=== PATIENT | female | born 1940 | race Caucasian/White ===

== ENCOUNTER 2021-06-12 20:55 | Inpatient (IN) | payer MEDICARE, BC ==
[~2021-06-12] VITALS: Ht 162.6 cm; Wt 58.1 kg
[2021-06-12] MEDS ORDERED: TRAZ-257 PO (21:29)
[2021-06-12] MEDS ORDERED: LOSA1TAB42 PO (21:29)
[2021-06-12] MEDS ORDERED: SIMV-46 PO (21:29)
[2021-06-12] MEDS ORDERED: NIFE-60 PO (21:29)
[2021-06-12] MEDS ORDERED: METO-357 PO (21:29)
[2021-06-12] MEDS ORDERED: IBUPROFEN 400 MG TABLET PO ONE (21:45)
[2021-06-12] MEDS ORDERED: IBUPROFEN 400 MG TABLET ONE (21:53)
--- NOTE | 2021-06-12 21:54 | NUR ---
Per pt is medically clear for admission to MHU. SBAR report given to Marely on MHU floor via telephone.
--- NOTE | 2021-06-12 22:55 | NUR ---
Pt trans to MHU, NAD noted.
[2021-06-12] MEDS ORDERED: BLOOD SUGAR DIAGNOSTIC 1 EACH STRIP VI ONE (23:00)
[2021-06-12] MEDS ORDERED: MAG HYDROX/AL HYDROX/SIMETH 30 ML LIQUID UDC PO PRN (23:00)
[2021-06-12 23:03] VITALS: BP 148/68
[2021-06-12] MEDS: LORAZEPAM 0.5 MG TABLET PO PRN (23:18)
--- NOTE | 2021-06-12 23:30 | NUR ---
RECEIVED PATIENT VIA W/C FROM ER. PATIENT IS A/O X3. VERY ANXIOUS UPON ARRIVAL TO FLOOR. DENIES ANY PAIN OR DISCOMFORT. NO RESP. DISTRESS NOTED. PATIENT DENIES ANY THOUGHTS OR FEELINGS OF ANY SUICIDE IDEATIONS AT THIS TIME, BUT DID STATE SHE HAS BEEN VERY DEPRESSED FOR THE PAST 3 YEARS SINCE HER KNEE REPLACEMENT HAPPENED AND SHE LOST SOME OF HER INDEPENDENCE. RECENTLY LOST HER CAT OF OVER [address] PUENTES AND MELANIE NOTIFIED OF ADMISSION. PATIENT VERY ANXIOUS AND C/O ANXIETY, STATING SHE IS VERY TIRED AND WANTS TO GO TO BED. GIVEN ATIVAN 0.5MG PO PRN FOR ANXIETY. PROVIDED SAFE AND THERAPEUTIC ENVIRONMENT. WILL CONTINUE TO MONITOR AND ASSESS.
[2021-06-13 07:30] VITALS: BP 138/57
[2021-06-13] MEDS: LORAZEPAM 0.5 MG TABLET PO PRN ×2 (08:54→15:54)
--- NOTE | 2021-06-13 09:56 | NUR ---
Firearms Report: Cook [employer]illa completed and submitted a DOJ firearms report for 5150 grave disability certifications. A copy of report has been placed in patient chart.
[2021-06-13] MEDS ORDERED: Medication Not On Formulary EA (Losartan/Hydrochlorothiazide (Losartan-Hctz 100-12.5 Mg PO SCH (12:15)
[2021-06-13] MEDS: SIMVASTATIN 20 MG TABLET PO SCH ×2 (12:26→20:06)
[2021-06-13] MEDS: METOPROLOL SUCCINATE XL 50 MG TAB.SR.24H PO SCH (12:26)
--- NOTE | 2021-06-13 12:45 | NUR ---
SW Substance Abuse Intervention: Patient was provided with a brief substance abuse intervention for prescription medication overdose and referred to [facility] ([phone]) [facility] ([phone]) [place] [facility] (659-514-9470) [facility] (390-545-5668) [facility] ([phone]) [facility] National Helpline (828-090-4466).
[2021-06-13] MEDS: FLUOXETINE HCL 10 MG CAPSULE PO SCH (13:49)
[2021-06-13 15:11] VITALS: BP 106/61
--- NOTE | 2021-06-13 15:11 | NUR ---
SW Family Contact: SW spoke with patient's daughter Marely Velázquez ([phone]) and discussed patient's treatment and discharge plan. Marely expressed that she would like a SNF placement for the patient upon discharge. SW discussed SNF options such as [facility] and [facility]. Marely stated they will do some research for facilities. SW provided education on depressions and suicide and the emphasis on a psych focused facility. Marely is agreeable.
--- NOTE | 2021-06-13 15:11 | NUR ---
DYLAN Initial Discharge Plan: Patient currently resides at home [address] [place] [address] and would like to return. Patient has a daughter Marely Delgadillo ([phone]) who is involved in her treatment and discharge plan. DYLAN will continue to work with patient, family, and MD to ensure a safe and proper discharge plan.
--- NOTE | 2021-06-13 15:42 | NUR ---
Treatment Plan: Patient refused to sign the treatment plan due to depressed mood.
[2021-06-13] MEDS: MIRTAZAPINE 15 MG TABLET PO SCH (20:06)
[2021-06-13 20:33] VITALS: BP 114/53
[2021-06-13] MEDS: TEMAZEPAM 7.5 MG CAPSULE PO PRN (21:57)
[2021-06-14 06:53] LABS: HEMATOCRIT 40.2 % (31.2-41.9); MEAN CORPUSCULAR HEMOGLOBIN 31.4 uug (24.7-32.8); MEAN CORPUSCULAR VOLUME 93.8 fL (75.5-95.3); PLATELET COUNT (AUTO) 293 K/uL (179-408)
[2021-06-14 06:55] LABS: MAGNESIUM 1.8 mg/dL (1.8-2.4); PHOSPHOROUS 2.9 mg/dL (2.5-4.9)
[2021-06-14 07:30] VITALS: BP 148/70
[2021-06-14] MEDS: LOSARTAN POTASSIUM 50 MG TABLET PO SCH (08:57)
[2021-06-14] MEDS: HYDROCHLOROTHIAZIDE 12.5 MG CAPSULE PO SCH (08:58)
[2021-06-14] MEDS: METOPROLOL SUCCINATE XL 50 MG TAB.SR.24H PO SCH (08:58)
[2021-06-14] MEDS ORDERED: NIFEdipine XL 30 MG TABSR PO SCH (09:00)
[2021-06-14] MEDS: LORAZEPAM 0.5 MG TABLET PO PRN ×2 (09:08→18:04)
--- NOTE | 2021-06-14 09:34 | NUR ---
SNF Referral: This SW faxed SNF placement to [facility]. SW faxed patient's clinicals.
--- NOTE | 2021-06-14 11:12 | NUR ---
SNF Contact: This SW received a call from Marely jacob from [facility] who stated that pt is accepted.
[2021-06-14] MEDS: ACETAMINOPHEN 325 MG TABLET PO PRN (13:08)
[2021-06-14] MEDS: FLUOXETINE HCL 10 MG CAPSULE PO SCH (13:09)
--- NOTE | 2021-06-14 14:18 | NUR ---
SW Family Contact: This SW received a call from patient's son in law Kt ([phone]) who stated that family has found a inpatient rehab in [place] called [facility] and requested for this SW to contact Ary ([phone]) the admin to see if they will accept pt.
--- NOTE | 2021-06-14 14:19 | NUR ---
SW SNF Referral: Per families request, this SW reached out to Ary from [facility] ([phone]) and spoke with rAy for placement option. This SW faxed patient's clinicals (F: [phone]).
--- NOTE | 2021-06-14 14:29 | NUR ---
SW Family Contact: This SW spoke with patient's daughter Marely ([phone]) and stated that patient is accepted at [facility] and she stated she does not want pt to go there. She stated that family is working on finding other facilities for her in [place]. She expressed she would want this SW to send referral to [facility]. SW informed that this senior medical writer has already sent in pt's clinicals for review to Ary jacob ([phone]).
[2021-06-14 14:38] LABS: EOSINOPHILS % (MANUAL) 3 % (0-8); LYMPHOCYTES % (MANUAL) 27 % (20-40); MONOCYTES % (MANUAL) 20 % (2-10); NEUTROPHILS % (MANUAL) 50 % (42-75)
--- NOTE | 2021-06-14 15:07 | NUR ---
SW SNF Contact: This SW received a call from Ary from [facility] ([phone]) who stated that they are not a behavioral facility and that [facility] ([phone]) is behavioral.
--- NOTE | 2021-06-14 15:08 | NUR ---
SNF Contact: This SW spoke with Ana from [facility] ([phone]) who stated that they are currently not taking in new patients and that they do not transfer pts from other units. She stated that pt has to come to the ER once discharged for them to admit her to the behavioral unit.
--- NOTE | 2021-06-14 15:12 | NUR ---
SW Family Contact: This SW spoke with Marely and Kt ([phone]) and shared information that the [facility] that was [facility] did not accept pt because they are not a behavioral unit. This SW shared information of [facility], Ana jacob ([phone]) who stated that they are currently not taking in new patients and that they do not transfer pts from other units. She stated that pt has to come to the ER once discharged for them to admit her to the behavioral unit. This SW shared this information. Kt and Marely stated that they want [facility] as a back up until they are able to find a placement for pt in [place].
[2021-06-14 16:32] VITALS: BP 127/51
[2021-06-14 20:06] VITALS: BP 116/50
[2021-06-14] MEDS: SIMVASTATIN 20 MG TABLET PO SCH (20:55)
[2021-06-14] MEDS: MIRTAZAPINE 15 MG TABLET PO SCH (20:55)
[2021-06-14] MEDS: TEMAZEPAM 7.5 MG CAPSULE PO PRN (22:19)
[2021-06-15 07:30] VITALS: BP 133/70
[2021-06-15] MEDS ORDERED: NIFEdipine XL 30 MG TABSR PO SCH (09:00)
[2021-06-15] MEDS: HYDROCHLOROTHIAZIDE 12.5 MG CAPSULE PO SCH (09:08)
[2021-06-15] MEDS: LOSARTAN POTASSIUM 50 MG TABLET PO SCH (09:09)
[2021-06-15] MEDS: NIFEdipine XL 60 MG TABSR PO SCH (09:09)
[2021-06-15] MEDS: METOPROLOL SUCCINATE XL 50 MG TAB.SR.24H PO SCH (09:10)
[2021-06-15] MEDS: LORAZEPAM 0.5 MG TABLET PO PRN ×3 (09:20→21:23)
[2021-06-15] MEDS: FLUOXETINE HCL 20 MG CAPSULE PO SCH (12:50)
[2021-06-15] MEDS ORDERED: FLUOXETINE HCL 10 MG CAPSULE PO SCH (13:00)
[2021-06-15] MEDS: MAGNESIUM HYDROXIDE 30 ML LIQUID UDC PO PRN (14:49)
--- NOTE | 2021-06-15 15:52 | NUR ---
SW Family Contact: This SW spoke with patient's daughter Marely and Kt ([phone]) who stated they have decided to take the patient home upon discharge. They stated they are coordinating resources her the patient such as psychiatry, home care, psychology and will provide the informations and appointments once set. They stated they will pick her up at discharge preferably on a Saturday.
[2021-06-15 16:00] VITALS: BP 114/58
[2021-06-15 20:00] VITALS: BP 111/51
[2021-06-15] MEDS: MIRTAZAPINE 15 MG TABLET PO SCH (20:19)
[2021-06-15] MEDS: SIMVASTATIN 20 MG TABLET PO SCH (20:19)
[2021-06-16] MEDS: LORAZEPAM 0.5 MG TABLET PO PRN ×2 (05:17→11:07)
--- NOTE | 2021-06-16 06:51 | NUR ---
GPS: Pt.slept for 7.30 last night. Woke up earlier and asked for an Ativan for anxiety which was given to her. Re-assured prn. Denies SI. Will continue to monitor.
[2021-06-16 07:30] VITALS: BP 120/49
--- NOTE | 2021-06-16 08:30 | NUR ---
Gps/Data Analysis Assistant- Ambulates aaround with front wheel walker, urine specimen obtained(Voided), taken to lab. Less anxious.
[2021-06-16] MEDS: HYDROCHLOROTHIAZIDE 12.5 MG CAPSULE PO SCH (09:03)
[2021-06-16] MEDS: NIFEdipine XL 60 MG TABSR PO SCH (09:03)
[2021-06-16] MEDS: METOPROLOL SUCCINATE XL 50 MG TAB.SR.24H PO SCH (09:04)
[2021-06-16] MEDS: ENSURE ENLIVE (VAN) 240 ML LIQUID PO SCH (09:05)
[2021-06-16] MEDS: LOSARTAN POTASSIUM 50 MG TABLET PO SCH (09:05)
--- NOTE | 2021-06-16 09:45 | NUR ---
Court Hearing: Patient's court hearing for 5250 is today and it was upheld for GD.
[2021-06-16 10:39] LABS: *BILIRUBIN,URIN NEGATIVE (NEGATIVE); *CLARITY,URINE CLOUDY (CLEAR); *COLOR,URINE YELLOW (YELLOW); *KETONES,URINE NEGATIVE (NEGATIVE); *UROBILINOGEN,URINE 0.2 E.U./dl (NORMAL); LEUKOCYTE ESTERASE ,URINE 2+ (NEGATIVE); NITRITE, URINE POSITIVE (NEGATIVE); UGLUCOSE NEGATIVE (NEGATIVE)
[2021-06-16 10:41] LABS: *BLOOD, URINE TRACE (NEGATIVE)
[2021-06-16] MEDS: FLUOXETINE HCL 20 MG CAPSULE PO SCH (12:47)
[2021-06-16 14:31] LABS: WBC,URINE TNTC /HPF (0-3)
[2021-06-16 14:32] LABS: BACTERIA,URINE MODERATE /HPF (NONE SEEN); SQUAMOUS EPITHELIAL CELL,UR FEW /HPF (NONE SEEN); URINE AMORPHOUS PHOSPHATES FEW /HPF
[2021-06-16 16:50] VITALS: BP 121/47
[2021-06-16] MEDS: SIMVASTATIN 20 MG TABLET PO SCH (20:04)
[2021-06-16] MEDS: MIRTAZAPINE 15 MG TABLET PO SCH (20:04)
[2021-06-16 20:21] VITALS: BP 109/50
[2021-06-16] MEDS: TEMAZEPAM 7.5 MG CAPSULE PO PRN (23:05)
[2021-06-17] MEDS: ACETAMINOPHEN 325 MG TABLET PO PRN ×3 (02:00→21:16)
[2021-06-17] MEDS: LORAZEPAM 0.5 MG TABLET PO PRN ×5 (02:00→23:16)
--- NOTE | 2021-06-17 06:28 | NUR ---
GPS: Pt.slept for 5.30 last night. Anxious at times but listens to re-direction from staff. Denies SI. Fall precautions observed.
[2021-06-17 07:30] VITALS: BP 124/50
[2021-06-17] MEDS: LOSARTAN POTASSIUM 50 MG TABLET PO SCH (08:16)
[2021-06-17] MEDS: NIFEdipine XL 60 MG TABSR PO SCH (08:17)
[2021-06-17] MEDS: METOPROLOL SUCCINATE XL 50 MG TAB.SR.24H PO SCH (08:17)
[2021-06-17] MEDS: HYDROCHLOROTHIAZIDE 12.5 MG CAPSULE PO SCH (08:18)
[2021-06-17] MEDS: ENSURE ENLIVE (VAN) 240 ML LIQUID PO SCH (08:19)
--- NOTE | 2021-06-17 09:00 | NUR ---
Patient is alert and cooperative upon assessment. In activity room watching TV assisted her back to bed with FWW. Denies of any pain. All due meds given per MD orders. All needs met promptly.
[2021-06-17] MEDS: NITROFURANTOIN/NITROFURAN MAC 100 MG CAPSULE PO SCH ×2 (10:05→21:06)
[2021-06-17] MEDS: FLUOXETINE HCL 20 MG CAPSULE PO SCH (12:45)
[2021-06-17 15:20] VITALS: BP 96/46
[2021-06-17 20:15] VITALS: BP 112/51
[2021-06-17] MEDS: SIMVASTATIN 20 MG TABLET PO SCH (21:06)
[2021-06-17] MEDS: MIRTAZAPINE 15 MG TABLET PO SCH (21:06)
[2021-06-17] MEDS: TEMAZEPAM 7.5 MG CAPSULE PO PRN (21:16)
[2021-06-18] MEDS: NITROFURANTOIN/NITROFURAN MAC 100 MG CAPSULE PO SCH ×2 (08:20→20:45)
[2021-06-18] MEDS: NIFEdipine XL 60 MG TABSR PO SCH (08:20)
[2021-06-18] MEDS: HYDROCHLOROTHIAZIDE 12.5 MG CAPSULE PO SCH (08:21)
[2021-06-18] MEDS: METOPROLOL SUCCINATE XL 50 MG TAB.SR.24H PO SCH (08:21)
[2021-06-18] MEDS: LOSARTAN POTASSIUM 50 MG TABLET PO SCH (08:21)
[2021-06-18] MEDS: ENSURE ENLIVE (VAN) 240 ML LIQUID PO SCH (08:22)
[2021-06-18] MEDS: LORAZEPAM 0.5 MG TABLET PO PRN ×3 (08:47→20:24)
[2021-06-18 09:12] VITALS: BP 136/49
[2021-06-18] MEDS: ACETAMINOPHEN 325 MG TABLET PO PRN ×2 (10:42→15:24)
[2021-06-18] MEDS: FLUOXETINE HCL 20 MG CAPSULE PO SCH (12:34)
[2021-06-18 16:37] VITALS: BP 119/62
[2021-06-18 20:00] VITALS: BP 113/56
[2021-06-18] MEDS: SIMVASTATIN 20 MG TABLET PO SCH (20:46)
[2021-06-18] MEDS: MIRTAZAPINE 15 MG TABLET PO SCH (20:46)
[2021-06-18] MEDS: TEMAZEPAM 7.5 MG CAPSULE PO PRN (21:05)
[2021-06-19] MEDS: LORAZEPAM 0.5 MG TABLET PO PRN ×2 (01:30→08:45)
[2021-06-19] MEDS: ACETAMINOPHEN 325 MG TABLET PO PRN (04:23)
[2021-06-19 07:48] VITALS: BP 125/48
[2021-06-19] MEDS: NITROFURANTOIN/NITROFURAN MAC 100 MG CAPSULE PO SCH ×2 (08:23→20:29)
[2021-06-19] MEDS: METOPROLOL SUCCINATE XL 50 MG TAB.SR.24H PO SCH (08:24)
[2021-06-19] MEDS: LOSARTAN POTASSIUM 50 MG TABLET PO SCH (08:24)
[2021-06-19] MEDS: NIFEdipine XL 60 MG TABSR PO SCH (08:24)
[2021-06-19] MEDS: ENSURE ENLIVE (VAN) 240 ML LIQUID PO SCH (08:25)
--- NOTE | 2021-06-19 09:10 | NUR ---
SW Family Contact: This SW spoke with patient's son in law Kt ([phone]) who stated they are still on plan with taking the patient home this week with doctor follow up appointments.
[2021-06-19] MEDS: FLUOXETINE HCL 20 MG CAPSULE PO SCH (12:19)
[2021-06-19 12:33] LABS: HEMATOCRIT 39.1 % (31.2-41.9); MEAN CORPUSCULAR HEMOGLOBIN 31.9 uug (24.7-32.8); MEAN CORPUSCULAR VOLUME 94.2 fL (75.5-95.3); PLATELET COUNT (AUTO) 272 K/uL (179-408)
[2021-06-19 12:44] LABS: CREATININE 1.2 mg/dL (0.6-1.3); POTASSIUM 4.4 mmol/L (3.5-5.1)
[2021-06-19 12:55] LABS: BILIRUBIN,TOTAL 0.4 mg/dL (0.2-1.0); TOTAL PROTEIN, SERUM 6.8 g/dL (6.4-8.2)
[2021-06-19 16:49] VITALS: BP 104/42
[2021-06-19 20:17] VITALS: BP 113/48
[2021-06-19] MEDS: SIMVASTATIN 20 MG TABLET PO SCH (20:29)
[2021-06-19] MEDS: MIRTAZAPINE 15 MG TABLET PO SCH (20:29)
[2021-06-19] MEDS: TEMAZEPAM 7.5 MG CAPSULE PO PRN (22:36)
[2021-06-20 06:48] LABS: HEMATOCRIT 40.8 % (31.2-41.9); MEAN CORPUSCULAR HEMOGLOBIN 31.8 uug (24.7-32.8); MEAN CORPUSCULAR VOLUME 93.7 fL (75.5-95.3); PLATELET COUNT (AUTO) 310 K/uL (179-408)
[2021-06-20 07:01] LABS: CREATININE 1.1 mg/dL (0.6-1.3); POTASSIUM 4.3 mmol/L (3.5-5.1)
[2021-06-20 08:00] VITALS: BP 134/54
[2021-06-20] MEDS: NIFEdipine XL 60 MG TABSR PO SCH (08:34)
[2021-06-20] MEDS: NITROFURANTOIN/NITROFURAN MAC 100 MG CAPSULE PO SCH ×2 (08:34→21:06)
[2021-06-20] MEDS: LOSARTAN POTASSIUM 50 MG TABLET PO SCH (08:35)
[2021-06-20] MEDS: METOPROLOL SUCCINATE XL 50 MG TAB.SR.24H PO SCH (08:35)
[2021-06-20] MEDS: ENSURE ENLIVE (VAN) 240 ML LIQUID PO SCH (08:55)
[2021-06-20] MEDS: FLUOXETINE HCL 20 MG CAPSULE PO SCH (12:48)
--- NOTE | 2021-06-20 13:14 | NUR ---
GPS: pt alert and verbally responsive. pt cooperative with care and compliant with medication. denies any pain or distress at this time. went to dining room for breakfast and lunch and uses front wheel walker during ambulation.
--- NOTE | 2021-06-20 13:30 | NUR ---
SW Family Contact: This SW spoke with patient's son in law Kt ([phone]) and discussed discharge plan, he stated that he will olive picker pt Saturday 11-12:30PM. SW discussed pt's current status.
[2021-06-20 16:00] VITALS: BP 139/55
[2021-06-20] MEDS: ACETAMINOPHEN 325 MG TABLET PO PRN (16:07)
[2021-06-20 20:56] VITALS: BP 125/50
[2021-06-20] MEDS: MIRTAZAPINE 15 MG TABLET PO SCH (21:06)
[2021-06-20] MEDS: SIMVASTATIN 20 MG TABLET PO SCH (21:06)
[2021-06-20] MEDS: TEMAZEPAM 7.5 MG CAPSULE PO PRN (23:17)
[2021-06-21 07:30] VITALS: BP 143/53
[2021-06-21] MEDS: NITROFURANTOIN/NITROFURAN MAC 100 MG CAPSULE PO SCH ×2 (09:17→20:26)
[2021-06-21] MEDS: METOPROLOL SUCCINATE XL 50 MG TAB.SR.24H PO SCH (09:18)
[2021-06-21] MEDS: LOSARTAN POTASSIUM 50 MG TABLET PO SCH (09:18)
[2021-06-21] MEDS: ENSURE ENLIVE (VAN) 240 ML LIQUID PO SCH (09:18)
[2021-06-21] MEDS: NIFEdipine XL 60 MG TABSR PO SCH (09:20)
--- NOTE | 2021-06-21 10:00 | NUR ---
GPS: Patient is alert and cooperative upon assessment. In activity room watching TV. Ambulate with FWW. Denies of any pain. All due meds given . All needs met promptly.continue plan of care.
[2021-06-21] MEDS: FLUOXETINE HCL 20 MG CAPSULE PO SCH (12:33)
--- NOTE | 2021-06-21 14:41 | NUR ---
DYLAN Family Contact: This SW spoke with patient's son in law Kt ([phone]) who requested for patient o be referred for Home Health Services at [facility] (P: [phone] F: [phone]). DYLAN spoke with Ria at the Agency and faxed referral packet.
[2021-06-21 16:00] VITALS: BP 123/59
[2021-06-21] MEDS: ACETAMINOPHEN 325 MG TABLET PO PRN (17:30)
--- NOTE | 2021-06-21 17:31 | NUR ---
patient c/o back pain . tylenol 650 mg po given.
[2021-06-21 19:45] VITALS: BP 121/59
[2021-06-21] MEDS: SIMVASTATIN 20 MG TABLET PO SCH (20:26)
[2021-06-21] MEDS: MIRTAZAPINE 15 MG TABLET PO SCH (20:26)
[2021-06-21] MEDS: TEMAZEPAM 7.5 MG CAPSULE PO PRN (22:36)
[2021-06-22 07:30] VITALS: BP 117/53
[2021-06-22] MEDS: ENSURE ENLIVE (VAN) 240 ML LIQUID PO SCH (09:00)
[2021-06-22] MEDS: LOSARTAN POTASSIUM 50 MG TABLET PO SCH (09:40)
[2021-06-22] MEDS: NIFEdipine XL 60 MG TABSR PO SCH (09:40)
[2021-06-22] MEDS: METOPROLOL SUCCINATE XL 50 MG TAB.SR.24H PO SCH (09:41)
[2021-06-22] MEDS: ACETAMINOPHEN 325 MG TABLET PO PRN ×2 (10:24→18:24)
[2021-06-22] MEDS: LORAZEPAM 0.5 MG TABLET PO PRN (10:25)
[2021-06-22] MEDS: FLUOXETINE HCL 20 MG CAPSULE PO SCH (13:28)
--- NOTE | 2021-06-22 14:55 | NUR ---
Gps/Graduation Coach- Attends and participates in her group therapy, making her needs known to staff . Verbalized feelings of being anxious, claimed she 's trying her best to keep herself focus per pt. Denies any S.I. , cooperative with staff.
[2021-06-22 16:13] VITALS: BP 111/49
[2021-06-22] MEDS: ASPIRIN EC 81 MG TABLET.DR PO SCH (17:41)
[2021-06-22 20:03] VITALS: BP 112/52
[2021-06-22] MEDS: MIRTAZAPINE 15 MG TABLET PO SCH (20:09)
[2021-06-22] MEDS: NITROFURANTOIN/NITROFURAN MAC 100 MG CAPSULE PO SCH (20:10)
[2021-06-22] MEDS: SIMVASTATIN 20 MG TABLET PO SCH (20:10)
[2021-06-22] MEDS: TEMAZEPAM 7.5 MG CAPSULE PO PRN (22:38)
[2021-06-23] MEDS: NIFEdipine XL 60 MG TABSR PO SCH (08:32)
[2021-06-23] MEDS: GLIMEPIRIDE 2 MG TABLET PO SCH (08:33)
[2021-06-23] MEDS: LOSARTAN POTASSIUM 50 MG TABLET PO SCH (08:33)
[2021-06-23] MEDS: ENSURE ENLIVE (VAN) 240 ML LIQUID PO SCH (08:33)
[2021-06-23] MEDS: METOPROLOL SUCCINATE XL 50 MG TAB.SR.24H PO SCH (08:33)
[2021-06-23] MEDS: ASPIRIN EC 81 MG TABLET.DR PO SCH (08:33)
[2021-06-23] MEDS: NITROFURANTOIN/NITROFURAN MAC 100 MG CAPSULE PO SCH (08:35)
[2021-06-23 08:53] VITALS: BP 140/63
[2021-06-23] MEDS: MAGNESIUM HYDROXIDE 30 ML LIQUID UDC PO PRN (09:58)
--- NOTE | 2021-06-23 10:16 | NUR ---
DISCHARGE EARLY ENTRY SATURDAY: Patient will be discharged home [address] [facility], [place] [address]. Patients daughter, Marely ([phone]) and son-in-law Kt ([phone]) are involved in her care and will be picking up the patient today and taking her home between 11-12:30PM. Patient is alert and oriented x4 and is aware and agreeable with discharge plans. Patient presents with euthymic mood and congruent affect. Patient denies suicidal or homicidal ideation. Patient will be following up with her primary physician Dr. Macho Vaughn MD Address: [address] [place] [address] [address], [place] [address] and has an appointment on Jul 04, 11:00 AM. Patient will be following up with a new psychiatrist at [facility] Address: [address] [place] [address] [address], [place] [address] and family will be scheduling an appointment within the month. Patient will also be following up with [facility] Address: [facility] [facility], [address] [place] [address] and has an appointment: June 26, 3:30 PM. In addition, family have arranged home visits from Occupational and Physical Therapists, Nurses and Social Workers set-up through [facility]. Patient was provided with a brief substance abuse intervention and referred to [facility] ([phone]) [facility] ([phone]) National Suicide Prevention Lifeline (240-868-4312) [facility] (287-041-1681) [facility] ([phone]) [facility] National Helpline (559-572-6851).
[2021-06-23] MEDS: LORAZEPAM 0.5 MG TABLET PO PRN ×2 (12:05→17:31)
[2021-06-23] MEDS: FLUOXETINE HCL 20 MG CAPSULE PO SCH (13:24)
[2021-06-23] MEDS: ACETAMINOPHEN 325 MG TABLET PO PRN (14:46)
[2021-06-23 16:52] VITALS: BP 104/43
--- NOTE | 2021-06-23 17:24 | NUR ---
Patient for discharge tomorrow, 06/24, medication prescription available in the chart. Continue anxiety and pain management. will continue monitor
[2021-06-23 19:45] VITALS: BP 124/60
[2021-06-23] MEDS: SIMVASTATIN 20 MG TABLET PO SCH (20:08)
[2021-06-23] MEDS: MIRTAZAPINE 15 MG TABLET PO SCH (20:08)
[2021-06-23] MEDS: TEMAZEPAM 7.5 MG CAPSULE PO PRN (22:21)
[2021-06-24 07:30] VITALS: BP 154/59
[2021-06-24] MEDS: METOPROLOL SUCCINATE XL 50 MG TAB.SR.24H PO SCH (08:23)
[2021-06-24] MEDS: ASPIRIN EC 81 MG TABLET.DR PO SCH (08:24)
[2021-06-24] MEDS: GLIMEPIRIDE 2 MG TABLET PO SCH (08:24)
[2021-06-24] MEDS: LOSARTAN POTASSIUM 50 MG TABLET PO SCH (08:24)
[2021-06-24] MEDS: LORAZEPAM 0.5 MG TABLET PO PRN (08:25)
[2021-06-24 08:26] VITALS: BP 154/59
[2021-06-24] MEDS: NIFEdipine XL 60 MG TABSR PO SCH (08:26)
[2021-06-24] MEDS: ENSURE ENLIVE (VAN) 240 ML LIQUID PO SCH (08:27)
--- NOTE | 2021-06-24 10:58 | NUR ---
Gps/Club Concierge- Prescriptions for Medical as well as from Psychiatrist was [facility] in to [facility] [place] by Jorge Saldivar. , to Bianka Hwang.
--- NOTE | 2021-06-24 11:09 | NUR ---
Gps/Director Motion Picture- Reviewed discharged instructions with the patient, all valuables including pass port and cell phone with diamond setter apprentice returned to patient. Patient verbalized understanding of the discharged instructions. Daughter Marely to provide transportation.
--- NOTE | 2021-06-24 11:17 | NUR ---
Gps/Lvnn _ Patient requesting to take her prozac 20 mg po due at 1300 , r/t long drive to [place]. , Reviewed medications , patient verbalized understanding.
[2021-06-24] MEDS: FLUOXETINE HCL 20 MG CAPSULE PO SCH (11:44)
--- NOTE | 2021-06-24 11:45 | NUR ---
Gps/Maintenance Scheduler- Patient's daughter , Marely and son in law in to knot picker cloth patient, reviewed discharged instructions, medications/rx, follow up with Primary Medical Doctor as well as her Psychiatrist as recommended., both verbalized understanding. All belongings given back to patient. Discharged via private car, in godd spirit, with no new c/o offered., less depressed, less anxious, denies S.I. no H.I.
--- NOTE | 2021-07-10 14:30 | NUR ---
Social Work Substance Abuse Follow Up Intervention: Playground Equipment Erector conducted a substance abuse follow-up intervention.
== END 2021-06-24 12:01 | disposition home health service (06) | DRG 885 ==
LOC: ER 21:01 → GPS 22:42
PROVIDERS: ADMIT Psychiatry & Neurology Psychosomatic Medicine; ATTEND Internal Medicine
DX: F33.3 Major depressive disorder, recurrent, severe with psychotic symptoms (principal); N17.0 Acute kidney failure with tubular necrosis; T43.212A Poisoning by selective serotonin and norepinephrine reuptake inhibitors, intentional self-harm, initial encounter; N39.0 Urinary tract infection, site not specified; F41.8 Other specified anxiety disorders; E78.5 Hyperlipidemia, unspecified; I10 Essential (primary) hypertension; T43.212D Poisoning by selective serotonin and norepinephrine reuptake inhibitors, intentional self-harm, subsequent encounter; E11.9 Type 2 diabetes mellitus without complications; B96.20 Unspecified Escherichia coli [E. coli] as the cause of diseases classified elsewhere; E78.00 Pure hypercholesterolemia, unspecified; I67.2 Cerebral atherosclerosis; Y92.009 Unspecified place in unspecified non-institutional (private) residence as the place of occurrence of the external cause
CPT/HCPCS: 36415; 70030-TC; 70450; 83735; 84100; 85025; 87040; 87077; 87086; 97161; A4663